=== PATIENT | female | born 1960 | race Caucasian/White ===

== ENCOUNTER 2017-01-18 12:39 | Inpatient (IN) | payer OTHER, MEDICARE ==
[~2017-01-18] VITALS: Ht 152.4 cm; Wt 84.5 kg
[2017-02-05] MEDS ORDERED: AMBI5TAB PO (13:51)
[2017-02-07] MEDS ORDERED: BUPIVACAINE LIPOSOME PF 1.3% 20 ML VIAL ONE (11:25)
[2017-02-07] MEDS ORDERED: SODIUM CHLORID 0.9% 500 ML IV PRN (12:00)
[2017-02-07] MEDS ORDERED: TRANEXAMIC ACID IV SCH (12:00)
[2017-02-07] MEDS ORDERED: CHLORHEXIDINE GLUCONATE 4% SOLN 120 ML BTL TOPICAL SCH (12:00)
[2017-02-07] MEDS ORDERED: DEXAMETHASONE SOD PHOS 20 MG/5 ML VIAL IV ONE (12:00)
[2017-02-07] MEDS ORDERED: INSULIN HUMAN REGULAR 1,000 UNITS/10 ML VIAL SQ PRN (12:00)
[2017-02-07] MEDS ORDERED: POVIDONE IODINE 7.5% SCRUB 118 ML BOTTLE TOPICAL SCH (12:00)
[2017-02-07] MEDS ORDERED: SODIUM CHLORIDE 0.9% IV SCH (12:00)
[2017-02-07] MEDS ORDERED: VANCOMYCIN 1000 MG/NS 250 ML (for <70 kg) IV SCH ×2 (12:00)
[2017-02-07] MEDS ORDERED: LACTATED RINGER'S 1000 ML IV PRN (12:00)
[2017-02-07] MEDS ORDERED: ceFAZolin 2 GM PREMIX 50 ML IV SCH (12:00)
[2017-02-07] MEDS ORDERED: POVIDONE IODINE 5% (ANTISEPSIS KIT) 4 APPLICATIONS EACH NARE PRN (12:00)
[2017-02-07] MEDS ORDERED: ROPIVACAINE PERI-ARTICULAR INJECTION. P-ARTICULR SCH ×5 (12:00)
[2017-02-07] MEDS ORDERED: METOPROLOL TARTRATE 25 MG TAB PO PRN (12:00)
[2017-02-07] MEDS ORDERED: CHLORHEXIDINE GLUCONATE 2 % 1 PACK (2 CLOTHS) TOPICAL PRN (12:00)
[2017-02-07] MEDS ORDERED: GENTAMICIN SULFATE 80 MG/2 ML VIAL ONE (13:17)
[2017-02-07] MEDS ORDERED: HYDR-3288 PO (13:25)
[2017-02-07] MEDS ORDERED: ENOX30P SQ (13:26)
[2017-02-07] MEDS ORDERED: ASPI81CH37 CHEW (13:26)
[2017-02-07] MEDS ORDERED: LACTATED RINGER'S 1000 ML INJ 1,000 ML IV ONE (13:52)
[2017-02-07] MEDS ORDERED: PROPOFOL 200 MG/20 ML AMP IV ONE (13:52)
[2017-02-07] MEDS ORDERED: PHENYLEPH/NS 1000 MCG/10 ML SYR IV ONE (13:52)
[2017-02-07] MEDS: TRANEXAMIC PERI-ARTICULAR 3,000 MG/NS 100 ML P-ARTICULR SCH ×4 (15:18→16:46)
[2017-02-07] MEDS ORDERED: MIDAZOLAM HCL 2 MG/2 ML VIAL ONE (16:05)
[2017-02-07] MEDS ORDERED: Post-op Orders (for Pharmacy) MISC XX ONE (16:31)
[2017-02-07] MEDS ORDERED: DO NOT ADM ANY ANTICOAGULANT DRUGS PRN (16:31)
[2017-02-07] MEDS ORDERED: SODIUM CHLORIDE 0.9% FLUSH 5 ML FLUSH IVF PRN (17:00)
[2017-02-07] MEDS ORDERED: ZOLPIDEM TARTRATE 5 MG TAB PO PRN (17:00)
[2017-02-07] MEDS ORDERED: BISACODYL 10 MG SUPP RECTAL PRN (17:00)
[2017-02-07] MEDS ORDERED: ONDANSETRON HCL 4 MG/2 ML VIAL IVP PRN (17:00)
[2017-02-07] MEDS: SODIUM CHLOR 0.9% 1000 ML INJ 1,000 ML IV SCH (17:00)
[2017-02-07] MEDS ORDERED: diphenhydrAMINE HCL 50 MG/ML VIAL IV PRN (17:00)
[2017-02-07] MEDS ORDERED: ACETAMINOPHEN/HYDROcodone 325 MG/7.5 MG TAB PO PRN (17:00)
--- NOTE | 2017-02-07 17:40 | RADRPT ---
EXAM DATE/TIME: 02/07/2017 16:58 [place] COMPARISON: No previous studies available for comparison. INDICATIONS : Post op right total knee. MEDICAL HISTORY : None. SURGICAL HISTORY : None. ENCOUNTER: Initial ACUITY: 1 day PAIN SCORE: 0/10 LOCATION: Right Knee FINDINGS: 2 views of the knee show a total knee prosthesis in good position. No fracture or dislocation is obse rved. Soft tissue swelling is noted. Air and fluid noted within the joint. CONCLUSION: Total knee arthroplasty in good position. Kendrick Lin Jr., MD on February 07, 2017 at 17:37 Board Certified Radiologist. This report was verified electronically.
[2017-02-07] MEDS ORDERED: RESP: ALBUTEROL 2.5 MG/IPRATROPIUM 0.5 MG NEB (PRN) NEB (18:15)
[2017-02-07] MEDS ORDERED: ENALAPRILAT 1.25 MG/ML VIAL IV PUSH PRN (18:15)
--- NOTE | 2017-02-07 18:23 | PD.CONS ---
[facility] By [facility] Reason for Consult Medical management Primary Care Physician Jorge Johns M.D. Diagnoses: History of Present Illness 56-year-old female with a history of right severe knee osteoarthritis who despite medical management including physical therapy and injection, patient continued to have severe right knee pain affecting her daily living activity. She was taken to the OR today and underwent right total of knee arthroplasty '. Patient was seen in PACU denies any chest pain or shortness of breath. Review of Systems Except as stated in HPI: all other systems reviewed are Neg Past Family Social History Allergies: Coded Allergies: acetaminophen (Verified Adverse Reaction, Severe, Headache, 02/05/17) multiple side effects to this medication and anything in this family of medication oxycodone (Verified Adverse Reaction, Severe, Headache, 02/05/17) multiple side effects to this medication and anything in this family of medication Uncoded Allergies: steroids (Allergy, Severe, Shortness of Breath, 02/05/17) and palpitations Past Medical History Osteoarthritis Past Surgical History Right total knee arthroplasty Reported Medications See EMR Family History Patient denies any family history of hypertension, diabetes or CAD Social History Patient denies tobacco, alcohol or illicit drug intake Physical Exam Vital Signs Vital Signs Date Time Temp Pulse Resp B/P (MAP) Pulse Ox O2 Delivery O2 Flow Rate FiO2 02/07/17 16:35 97.4 85 20 100/64 (76) 95 Nasal Cannula 2 02/07/17 12:10 98.0 89 20 136/77 (96) 95 Physical Exam GENERAL: This is a well-nourished, well-developed patient, in no apparent distress. SKIN: No rashes, ecchymoses or lesions. Cool and dry. HEAD: Atraumatic. Normocephalic. No temporal or scalp tenderness. EYES: Pupils equal round and reactive. Extraocular motions intact. No scleral icterus. No injection or drainage. ENT: Nose without bleeding, purulent drainage or septal hematoma. Throat without erythema, tonsillar hypertrophy or exudate. Uvula midline. Airway patent. NECK: Trachea midline. No JVD or lymphadenopathy. Supple, nontender, no meningeal signs. CARDIOVASCULAR: Regular rate and rhythm without murmurs, gallops, or rubs. RESPIRATORY: Clear to auscultation. Breath sounds equal bilaterally. No wheezes , rales, or rhonchi. GASTROINTESTINAL: Abdomen soft, non-tender, nondistended. No hepato-splenomegaly , or palpable masses. No guarding. MUSCULOSKELETAL: Extremities without clubbing, cyanosis, or edema. No joint tenderness, effusion, or edema noted. No calf tenderness. Negative Homans sign bilaterally.s/p right TA; neurovascular intact NEUROLOGICAL: Awake and alert. Cranial nerves II through XII intact. Motor and sensory grossly within normal limits. Five out of 5 muscle strength in all muscle groups. Normal speech. Assessment and Plan Assessment and Plan 56-year-old female with Right total knee arthroplasty 02/07/17 Management per orthopedic surgery Lovenox for DVT prophylaxis Parenteral pain management PT consult to treat and eval Monitor H&H for postop anemia DVT prophylaxis: Lovenox Thank you for this consultation Code Status Full code Discussed Condition With Patient, Mendez Zimmer MD Feb 07, 2017 18:23
[2017-02-07] MEDS: SODIUM CHLORIDE 0.9% FLUSH 5 ML FLUSH IVF SCH (20:01)
[2017-02-07 20:15] VITALS: BP 126/66; PULSE 84; RESP 17; TEMP 96.7; O2SAT 99
[2017-02-07] MEDS: ACETAMINOPHEN/HYDROcodone 325 MG/7.5 MG TAB PO PRN (20:43)
[2017-02-07] MEDS: MORPHINE SULFATE 4 MG/ML INJ IV PUSH PRN (22:10)
[2017-02-08 00:50] VITALS: BP 92/55; PULSE 75; RESP 17; TEMP 97; O2SAT 96
[2017-02-08] MEDS: SODIUM CHLOR 0.9% 1000 ML INJ 1,000 ML IV SCH ×2 (02:51→10:23)
[2017-02-08] MEDS ORDERED: ENOXAPARIN SODIUM 30 MG/0.3 ML SYRINGE SQ SCH ×2 (04:30→16:00)
[2017-02-08 04:40] VITALS: BP 92/56; PULSE 74; RESP 16; TEMP 97.5; O2SAT 95
[2017-02-08] MEDS: MORPHINE SULFATE 4 MG/ML INJ IV PUSH PRN ×2 (06:01→10:18)
[2017-02-08 06:50] LABS: HEMATOCRIT 33.1 % (35.0-46.0); MEAN CELL VOLUME 88.7 FL (80.0-100.0); MEAN CORPUSCULAR HEMOGLOBIN 30.8 PG (27.0-34.0); MEAN CORPUSCULAR HGB CONC 34.7 % (32.0-36.0); PLATELET COUNT 241 TH/MM3 (150-450); RED BLOOD COUNT 3.74 MIL/MM3 (4.00-5.30); RED CELL DISTRIBUTION WIDTH 13.5 % (11.6-17.2); REVIEW FLAG FINAL
[2017-02-08 07:39] LABS: BICARBONATE 26.8 MEQ/L (21.0-32.0); POTASSIUM 3.7 MEQ/L (3.5-5.1)
[2017-02-08 08:00] VITALS: BP 105/64; PULSE 70; RESP 17; TEMP 97.3; O2SAT 96
[2017-02-08] MEDS: SODIUM CHLORIDE 0.9% FLUSH 5 ML FLUSH IVF SCH (08:06)
[2017-02-08] MEDS: ACETAMINOPHEN/HYDROcodone 325 MG/7.5 MG TAB PO PRN ×2 (09:45→13:32)
[2017-02-08 11:35] VITALS: BP 114/69; PULSE 82; RESP 17; TEMP 98.5; O2SAT 96
--- NOTE | 2017-02-08 12:17 | MP ---
cc: ZAKIA LEVY DATE OF SURGERY 02/07/2017 PREOPERATIVE DIAGNOSIS Right knee osteoarthritis. POSTOPERATIVE DIAGNOSES Right knee osteoarthritis. PROCEDURE Right total knee arthroplasty. SURGEON Dr. Zakia Levy BROADCAST MAINTENANCE TECHNICIAN Zakia Welch PA-C ANESTHESIA Spinal with a femoral nerve adductor canal block. ESTIMATED BLOOD LOSS 50 cc. TOURNIQUET TIME 42 minutes at 250 mmHg COMPLICATIONS None. IMPLANTS USED DePuy Attune size 4 posterior stabilized femoral component. Size 3 rotating platform tibia baseplate. Size 5-mm polyethylene tibial insert. Size 32 patella. JUSTIFICATION This patient is a 56-year-old female with a history of severe osteoarthritis involving the right knee. She has severe, disabling pain on standing, walking, ambulation, weightbearing activities and even severe pain at rest. She has failed greater than three months of nonoperative conservative treatment modalities to include medication therapy, injections, ambulatory assistive aids, home exercise program, activity modification. X-rays of the right knee reveal severe end-stage osteoarthritis with joint space narrowing, subchondral sclerosis, subchondral cysts, osteophyte formation, and associated subluxation. The patient was counseled as to the risks, benefits and alternatives to a total knee arthroplasty. The risks were discussed which include but are not limited to anesthesia, bleeding, infection, damage to nerves, blood vessels, pain, stiffness, failure of the components, blood clots, pulmonary embolism and even . The patient's pain is severe. She favored the benefits over the risks. She did wish to proceed with surgery. PROCEDURE IN DETAIL Written consent was obtained. The patient was identified by name and taken to the operating room, placed supine on the operating room table. Spinal anesthesia was administered as well as a 2 grams of IV Ancef and 1 gram of IV vancomycin. She received adductor canal femoral nerve block. A well-padded tourniquet was placed on the right thigh, the right lower extremity prepped and draped using isopropyl alcohol, Hibiclens solution and ChloraPrep solution. After a time-out was performed an Esmarch bandage was used to exsanguinate the right lower extremity and the tourniquet inflated to 250 mmHg. A longitudinal incision was made over the anterior aspect of the right knee. A medial parapatellar arthrotomy incision was performed. The patella resection guide was used to resect 7 mm of patella. The size 32-mm guide was placed and three drill holes were placed. The 32-mm trial fit well. Attention was turned to the femur where an intramedullary guide dusty was placed and the distal femoral guide was set to remove 10 mm of distal femur 5 degrees off the anatomic valgus axis alignment. An oscillating saw was used to perform the distal femoral cut. Attention was turned to the tibia where an extramedullary tibial guide was set to remove 5 mm off the lowest portion of the medial tibial plateau. The tibial guide was pinned in place and the tibial cut was performed. The 5-mm spacer block showed full extension. Attention was turned back to the femur where an AP spacer block measured a size 4. The anterior reference, 3-degree external rotational guide was used to pin the size [address] The anterior, posterior and chamfer cuts were performed. A size 4 PCL box guide was pinned in place and PCL was boxed out with an oscillating saw. The medial and lateral meniscus remnants were removed as well as bone and soft tissue debris from the posterior portion of the knee. A size 3 tibial baseplate was pinned in place and the tibia was drilled and punched. Trial components were evaluated and final components cemented in place. The current components allowed the leg to achieve full extension to 0 degrees, flexion to 140, no evidence of tibial lift-off. Varus-valgus balance appeared appropriate and symmetric and the patella was noted to track centrally. The tourniquet was deflated and Bovie cautery was used for hemostasis. The surgical wound was thoroughly irrigated with sterile saline pulse lavage antibiotic impregnated solution. The arthrotomy incision was closed with #1 Vicryl suture, the subcutaneous layer closed with 2-0 Vicryl suture and the skin was closed with Dermabond. Sterile dressings were applied. The patient tolerated the procedure well. There was no intraoperative complication noted. Jean-Pierre Welch, physician assistant activities director certified, was present during the entire procedure to include patient positioning and the procedure itself. The medical necessity of a physician assistant activities director was indicated in this case due to the complexity of the procedure itself. He assisted with appropriate manipulation of the leg and also retraction of muscle, tendon, bone and neurovascular structures. He assisted with preparation of bone and also implantation of the prosthetic replacement. MD HO Qiu/ÁNGEL /4:09 PM /11:57 AM
--- NOTE | 2017-02-08 12:36 | PD.ORT.PN ---
Subjective Post Op Day #: 1 Subjective Remarks pain better today. Objective Vitals Vital Signs Date Time Temp Pulse Resp B/P (MAP) Pulse Ox O2 Delivery O2 Flow Rate FiO2 02/08/17 11:35 98.5 82 17 114/69 (84) 96 02/08/17 08:00 97.3 70 17 105/64 (78) 96 02/08/17 06:12 21 02/08/17 04:40 97.5 74 16 92/56 (68) 95 02/08/17 00:50 97.0 75 17 92/55 (67) 96 02/07/17 20:15 96.7 84 17 126/66 (86) 99 02/07/17 19:15 97.6 62 16 117/74 (88) 98 Room Air 02/07/17 19:00 64 16 114/70 (85) 98 Room Air 02/07/17 18:45 63 16 115/72 (86) 98 Room Air 02/07/17 18:30 64 16 116/70 (85) 98 Room Air 02/07/17 18:15 66 16 119/71 (87) 97 Room Air 02/07/17 18:00 67 16 120/70 (87) 97 Room Air 02/07/17 17:45 68 15 118/72 (87) 96 Room Air 02/07/17 17:30 69 15 114/69 (84) 96 Room Air 02/07/17 17:15 73 15 110/68 (82) 95 Room Air 02/07/17 17:00 71 15 106/67 (80) 94 Room Air 02/07/17 16:45 78 15 102/66 (78) 99 Nasal Cannula 2 02/07/17 16:35 97.4 85 20 100/64 (76) 95 Nasal Cannula 2 I/O 02/07/17 02/07/17 02/07/17 02/08/17 02/08/17 02/08/17 06:59 14:59 22:59 06:59 14:59 22:59 Intake Total 50 ml 2877.67 ml 1115 ml Output Total 950 ml 575 ml Balance 50 ml 1927.67 ml 540 ml Intake Oral 460 ml 240 ml IV Total 50 ml 917.67 ml 875 ml Other 1500 ml Output Urine Total 900 ml 575 ml Estimated Blood Loss 50 ml # Bowel Movements 0 0 Result Diagram: 02/08/17 0546 02/08/17 0546 Imaging Last 24 hours Impressions Knee X-Ray 02/07/17 1651 Signed Impressions: Service Date/Time: Tuesday, February 07, 2017 16:58 - CONCLUSION: Total knee arthroplasty in good position. Kendrick Lin Jr., MD Objective Remarks in bed, using cpm, nad incision no erythema, no drainage neg homans nvi Assessment & Plan Ortho Post Op Day #: 1 Problem List: Assessment and Plan s/p R TKA wbat daily dressing changes lovenox d/c planning home with [facility] and pt - cleared today if does well with PT rx in chart f/up dr. lockwood 2 weeks Ender Welch Feb 08, 2017 12:36
--- NOTE | 2017-02-08 12:37 | HHI.DCPOC ---
Discharge Care Plan Diagnosis: (1) Primary localized osteoarthrosis, lower leg Your Health Problems Are: Difficulty with ADL Goals to Promote Your Health * To prevent worsening of your condition and complications * To maintain your health at the optimal level Directions to Meet Your Goals Take your medications as prescribed Follow your dietary instruction Follow activity as directed Keep your appointments as scheduled Take your immunizations and boosters as scheduled If your symptoms worsen call your PCP, if no PCP go to Urgent Care Center or Emergency Room Smoking is Dangerous to Your Health. Avoid second hand smoke Call the 24-hour hour crisis hotline for domestic abuse at Ender Welch Feb 08, 2017 12:37
--- NOTE | 2017-02-08 12:38 | HHI.FF ---
Face to Face Verification Diagnosis: (1) Primary localized osteoarthrosis, lower leg Physical Therapy Gait training, Safety evaluation, Transfer training, bed to chair Knee: Total knee, Protocol: Right, Full weight bearing Right LE Weight Bearing: WB as tolerated Nursing RN: 3 days/week x 2 weeks Nursing: Alec teaching, Dressing changes Dressing Changes: Daily dressing change I have seen patient Leora Porter on 02/08/17. My clinical findings support the need for the requested home health care services because: Limited ability to care for self High risk of falls I certify that my clinical findings support that this patient is homebound because: Post-op weakness Unsteady gait/balance Ender Welch Feb 08, 2017 12:38
[2017-02-08] MEDS ORDERED: COMMODE 3-IN-11 MIS (12:39)
[2017-02-08] MEDS ORDERED: WALKER WHEELS/F1 MIS (12:39)
[2017-02-08] MEDS ORDERED: CPMMACHINE (12:39)
--- NOTE | 2017-02-08 13:34 | HHI.PR ---
Subjective Remarks Follow-up right total knee arthroplasty Patient seen and examined, denies any significant right lower extremity pain. States, she would like to go home today Objective Vitals Vital Signs Date Time Temp Pulse Resp B/P (MAP) Pulse Ox O2 Delivery O2 Flow Rate FiO2 02/08/17 11:35 98.5 82 17 114/69 (84) 96 02/08/17 08:00 97.3 70 17 105/64 (78) 96 02/08/17 06:12 21 02/08/17 04:40 97.5 74 16 92/56 (68) 95 02/08/17 00:50 97.0 75 17 92/55 (67) 96 02/07/17 20:15 96.7 84 17 126/66 (86) 99 02/07/17 19:15 97.6 62 16 117/74 (88) 98 Room Air 02/07/17 19:00 64 16 114/70 (85) 98 Room Air 02/07/17 18:45 63 16 115/72 (86) 98 Room Air 02/07/17 18:30 64 16 116/70 (85) 98 Room Air 02/07/17 18:15 66 16 119/71 (87) 97 Room Air 02/07/17 18:00 67 16 120/70 (87) 97 Room Air 02/07/17 17:45 68 15 118/72 (87) 96 Room Air 02/07/17 17:30 69 15 114/69 (84) 96 Room Air 02/07/17 17:15 73 15 110/68 (82) 95 Room Air 02/07/17 17:00 71 15 106/67 (80) 94 Room Air 02/07/17 16:45 78 15 102/66 (78) 99 Nasal Cannula 2 02/07/17 16:35 97.4 85 20 100/64 (76) 95 Nasal Cannula 2 I/O 02/07/17 02/07/17 02/07/17 02/08/17 02/08/17 02/08/17 07:00 15:00 23:00 07:00 15:00 23:00 Intake Total 50 ml 2877.67 ml 1115 ml Output Total 950 ml 575 ml Balance 50 ml 1927.67 ml 540 ml Intake Oral 460 ml 240 ml IV Total 50 ml 917.67 ml 875 ml Other 1500 ml Output Urine Total 900 ml 575 ml Estimated Blood Loss 50 ml # Bowel Movements 0 0 Result Diagram: 02/08/17 0546 02/08/17 0546 Imaging Last Impressions Knee X-Ray 02/07/17 1651 Signed Impressions: Service Date/Time: Tuesday, February 07, 2017 16:58 - CONCLUSION: Total knee arthroplasty in good position. Kendrick Lin Jr., MD Objective Remarks GENERAL: NAD SKIN: Warm and dry. HEAD: Normocephalic. EYES: No scleral icterus. No injection or drainage. NECK: Supple, trachea midline. No JVD or lymphadenopathy. CARDIOVASCULAR: Regular rate and rhythm without murmurs, gallops, or rubs. RESPIRATORY: Breath sounds equal bilaterally. No accessory muscle use. GASTROINTESTINAL: Abdomen soft, non-tender, nondistended. MUSCULOSKELETAL: No cyanosis, or edema. Dressing over incision; neurovascular intact BACK: Nontender without obvious deformity. No CVA tenderness. A/P Assessment and Plan 56-year-old female with Right total knee arthroplasty 02/07/17 Management per orthopedic surgery Lovenox for DVT prophylaxis Parenteral pain management PT to treat and eval DVT prophylaxis: Mendez Silva MD Feb 08, 2017 13:34
[2017-02-08] MEDS ORDERED: DOCUSATE SODIUM 100 MG CAP PO SCH (21:00)
[2017-02-08] MEDS ORDERED: MULTIVITAMINS/MINERALS THERAPEUTIC TAB PO SCH (21:00)
--- NOTE | 2017-02-19 06:51 | MD ---
cc: ZAKIA AGUIRRE ADMISSION DATE: 02/07/2017 DISCHARGE DATE: 02/08/2017 ADMISSION DIAGNOSIS Severe degenerative osteoarthritis right knee. DISCHARGE DIAGNOSIS: Severe degenerative osteoarthritis right knee. BRIEF HISTORY: Mrs. Porter is a 56-year-old female who presented to the [facility] for evaluation by Dr. Zakia Aguirre regarding her progressive and severe right knee pain. The patient states the pain has been bothering her for greater than one in year duration for which she has received treatment for this ailment. She states that her pain is aggravated weightbearing activities. She has no alleviating factors at this point in time, although in the past she has tried medications, bracing, physical therapy, home exercises and corticosteroid injections without long-lasting relief of symptoms. She does have x-ray evidence of severe degenerative osteoarthritis of the right knee. While in the office, the patient was counseled on her diagnosis and treatment options, risks, benefits, indications of all discussed. The patient did elect proceed with surgical intervention to include a right total knee arthroplasty. HOSPITAL COURSE: Date of surgery was 02/07/2017 right total knee arthroplasty. Postop after surgery the patient was admitted to [facility] where she received appropriate medical management, pain control, DVT prophylaxis as well as physical therapy. Once being discharged the hospital, the patient was cleared to go home where she will receive home health care and home physical therapy. She is stable condition. She may weight-bear as tolerated. The patient is to receive daily dressing changes and has been instructed on proper wound care management. She has been provided prescriptions for pain control as well as DVT prophylaxis medication. She has also been provided a follow-up appointment in approximately two weeks from her date of surgery. The patient has asked appropriate questions which have been answered. The patient has been discharged. Dictated by Jean-Pierre Welch PA-C. MD HO Qiu/YEIMY /12:48 PM /6:48 AM
== END 2017-02-08 15:44 | disposition home health service (06) | DRG 470 ==
LOC: HSDI 02-07 11:15 → N06B 02-07 19:24
PROVIDERS: ADMIT Orthopaedic Surgery Sports Medicine; ATTEND Orthopaedic Surgery Sports Medicine
PROC: 0SRC0J9 Replacement of Right Knee Joint with Synthetic Substitute, Cemented, Open Approach (ICD-10-PCS; principal; 2017-02-07 14:28)
DX: M17.11 Unilateral primary osteoarthritis, right knee (principal); E66.9 Obesity, unspecified; Z68.36 Body mass index [BMI] 36.0-36.9, adult
CPT/HCPCS: 73560; 80048; 85027; 86850; 86900; 86901; C1776; C9290; J0171; J0690; J0735; J1580; J1650; J1885; J2250; J2270; J2370; J2405; J2795; J3370; J7030; J7050; J7120; L1830